=== PATIENT | male | born 1995 | race Caucasian/White ===

== ENCOUNTER 2017-03-08 11:18 | Outpatient (CLI) | payer BC ==
--- NOTE | 2017-03-08 12:07 | RAD ---
LUMBAR SPINE COMPLETE WITH BENDING: Date: 03/08/17 HISTORY: Pain. M43.17, spondylolisthesis lumbosacral region. COMPARISON: None. FINDINGS: Five non-rib bearing lumbar-type vertebra. No acute fracture. No malalignment. No significant listhes is with flexion or extension. There appears to be somewhat chronic appearing T12 vertebral body height loss. IMPRESSION: No significant listhesis with flexion or extension. POS: [facility]
== END 2017-03-08 11:19 | disposition home or self-care (01) ==
LOC: RAD 11:18
PROVIDERS: ATTEND Specialist
DX: M43.17 Spondylolisthesis, lumbosacral region (principal)
CPT/HCPCS: 36415; 72100; 82306; 82310

== ENCOUNTER 2017-05-22 15:42 | Outpatient (CLI) | payer BC ==
--- NOTE | 2017-05-22 17:04 | CT ---
EXAM: CT LUMBAR SPINE WITHOUT CONTRAST 05/22/17 HISTORY: Lumbar radiculopathy. Low back pain x8 months. Possible heavy lifting injury. COMPARISON: None. TECHNIQUE: CT lumbar spine is performed without contrast administration. Sagittal and coronal reformatted images are submitted for interpretation. FINDINGS: Lumbar spine vertebral body height is maintained. There is no fracture. There is minimal Schmorl's no vijay involving the lower thoracic and upper lumbar spine. There are bilateral pars defects at L5 witho ut associated significant spondylolisthesis. Symmetric attenuation of the psoas muscles. Visualized solid organs are unremarkable. No retroperitoneal abnormality. Limited evaluation of the contents of the central spinal canal and neural foramina. T11-T12 and T12-L1: No high grade central canal stenosis or high grade foraminal narrowing. L1-L2: No high grade central canal stenosis. Neural foramina are patent. L2-L3: No high grade central canal stenosis. Neural foramina are patent. L3-L4: No high grade central canal stenosis. Neural foramina are patent. L4-L5: Minimal generalized disc bulge without significant central canal stenosis. Minimal bilateral f oraminal narrowing. L5-S1: Central disc protrusion with minimal superior disc extrusion. Disc material abuts the ventral thecal sac without significant stenosis. Disc material does minimally encroach upon both subarticular zones without significant mass effect upon either traversing S1 nerve root. There is moderate bilate ral foraminal narrowing in part due to spondylolisthesis and in part due to disc material. IMPRESSION: Degenerative changes of the lumbar spine at L5-S1 as detailed above. POS: [facility]
== END 2017-05-22 15:43 | disposition home or self-care (01) ==
LOC: TBSIIMAG 15:42
PROVIDERS: ATTEND Surgery
DX: M47.27 Other spondylosis with radiculopathy, lumbosacral region (principal)
CPT/HCPCS: 72131

== ENCOUNTER 2017-10-30 15:17 | Outpatient (CLI) | payer BC ==
[2017-10-30 15:49] LABS: Hemoglobin 15.3 g/dL (14.0-18.0); Mean Corpuscular HGB CONC 34.8 g/dL (32.0-36.0); Mean Corpuscular Hemoglobin 31.6 pg (27.0-31.0); Mean Corpuscular Volume 90.8 fL (78.0-98.0); Mean Platelet Volume 7.6 fL (7.4-10.4); Platelet Count 186 thou/uL (130-400); RBC Distribution Width 10.8 % (11.5-14.5); Red Blood Cell (RBC) Count 4.85 mill/uL (4.70-6.10); White Blood Cell (WBC) Count 5.9 thou/uL (4.8-10.8)
[2017-10-30 15:57] LABS: PTT 28.2 SEC (22.9-36.1)
[2017-10-30 16:02] LABS: Anion Gap 11 mmol/L (10-20); BUN (Urea Nitrogen) 14 mg/dL (8.9-20.6); Calc. Creatinine Clearance 0 mL/min (70-130); Calcium 9.2 mg/dL (7.8-10.44); Carbon Dioxide 28 mmol/L (22-29); Chloride 104 mmol/L (98-107); Estimated GFR-MDRD Greater than 90; Glucose 84 mg/dL (70-105); Potassium 3.9 mmol/L (3.5-5.1); Sodium 139 mmol/L (136-145)
--- NOTE | 2017-10-31 10:42 | EKG ---
Test Reason : Blood Pressure : / mmHG Vent. Rate : 063 BPM Atrial Rate : 063 BPM P-R Int : 168 ms QRS Dur : 110 ms QT Int : 394 ms P-R-T Axes : 064 074 065 degrees QTc Int : 403 ms Normal sinus rhythm Normal ECG No previous ECGs available Confirmed by RENEA DEUTSCH, DR. Constantino ([id number]) on 10/31/2017 10:41:48 AM Referred By: ERICK Confirmed By:DR. Vira MEIER MD
== END 2017-10-30 15:18 | disposition home or self-care (01) ==
LOC: LABBT 15:17
PROVIDERS: ATTEND Surgery
DX: Z01.818 Encounter for other preprocedural examination (principal); M54.16 Radiculopathy, lumbar region; M43.16 Spondylolisthesis, lumbar region
CPT/HCPCS: 80048; 85027; 85610; 85730; 93005; 93010

== ENCOUNTER 2017-10-31 06:19 | Inpatient (IN) | payer BC ==
[2017-10-30 10:04] VITALS: BMI 27.3
[2017-10-31] MEDS ORDERED: Sodium Chloride 0.9% 10 ML ONE (06:24)
[2017-10-31] MEDS ORDERED: Bacitracin Zinc Ointment 30 gm TUBE ONE (06:24)
[2017-10-31] MEDS ORDERED: Thrombin 5000 UNITS/5 ML VIAL ONE ×2 (06:24→11:04)
[2017-10-31] MEDS ORDERED: Midazolam HCl 2 mg/2 ml Vial ONE (07:13)
[2017-10-31] MEDS ORDERED: CEFAZOLIN/Water 2 GM/20 ML SYRINGE ONE (07:21)
[2017-10-31] MEDS ORDERED: Fentanyl 100 MCG/2 ML VIAL ONE ×5 (07:28→14:22)
[2017-10-31] MEDS ORDERED: Fleet Enema 133 ML BOT PR PRN (12:11)
[2017-10-31] MEDS ORDERED: Acetaminophen 325 MG TAB PO PRN (12:11)
[2017-10-31] MEDS ORDERED: Mag-Al 1200 mg/1200 mg/30 ML UDCUP PO PRN (12:11)
[2017-10-31] MEDS ORDERED: Bisacodyl 10 MG SUPP PR PRN (12:11)
[2017-10-31] MEDS ORDERED: Acetaminophen/Codeine 30-300mg Tablet PO PRN (12:11)
[2017-10-31] MEDS ORDERED: Milk Of Magnesia 30 ML UDCUP PO PRN (12:11)
[2017-10-31] MEDS ORDERED: Ondansetron HCl/PF 4 MG/2 ML Vial IVP PRN ×2 (12:11→12:29)
[2017-10-31] MEDS ORDERED: HYDROmorphone 2 MG/ML VIAL SLOW IVP PRN (12:29)
[2017-10-31] MEDS ORDERED: Morphine Sulfate 2 MG/ML SYRINGE SLOW IVP PRN (12:29)
[2017-10-31] MEDS ORDERED: Promethazine HCl 25 MG/ML VIAL SLOW IVP PRN (12:29)
[2017-10-31] MEDS ORDERED: Meperidine HCl/PF 25 MG/ML VIAL SLOW IVP PRN (12:29)
[2017-10-31] MEDS ORDERED: Promethazine HCl 25 MG/ML VIAL IM PRN (12:29)
[2017-10-31] MEDS ORDERED: HYDROmorphone 0.5 MG/0.5 ML SYRINGE ONE ×4 (12:35→13:25)
[2017-10-31] MEDS ORDERED: ePHEDrine/0.9% NaCl/PF SYRINGE 50 mg/10 ml ONE (13:43)
[2017-10-31] MEDS ORDERED: PHENYLEPHRINE-NS 100 MCG/ML 10 ML SYRINGE ONE (13:43)
[2017-10-31] MEDS ORDERED: Lidocaine 1% PF 5 ML VIAL ONE (13:43)
[2017-10-31] MEDS ORDERED: Vecuronium 10 MG VIAL ONE (13:43)
[2017-10-31] MEDS ORDERED: Glycopyrrolate 0.2 MG/ML 5 ML SYRINGE ONE (13:43)
[2017-10-31] MEDS ORDERED: Dexamethasone 20 MG/5 ML VIAL ONE (13:43)
[2017-10-31] MEDS ORDERED: Ondansetron HCl/PF 4 MG/2 ML Vial ONE (13:43)
[2017-10-31] MEDS ORDERED: PROPOFOL 200 MG/20 ML VIAL ONE (13:43)
[2017-10-31] MEDS ORDERED: CEFAZOLIN/Water 2 GM/20 ML SYRINGE SLOW IVP SCH (14:00)
[2017-10-31] MEDS: tiZANidine HCl 4 MG TAB PO PRN ×2 (16:52→22:27)
[2017-10-31] MEDS: CEFAZOLIN/Water 2 GM/20 ML SYRINGE SLOW IVP SCH ×2 (17:00→23:23)
[2017-10-31] MEDS: HYDROcodone/Acetaminophen 7.5/325 mg Tablet PO PRN ×2 (17:00→21:00)
[2017-10-31] MEDS: Promethazine HCl 25 MG/ML VIAL IM PRN (18:17)
[2017-10-31] MEDS: Sodium Chloride 0.9% 1,000 ML IV SCH (20:29)
[2017-10-31] MEDS: traMADol HCl 50 MG TAB PO PRN (22:27)
[2017-11-01] MEDS: HYDROcodone/Acetaminophen 7.5/325 mg Tablet PO PRN ×2 (02:13→07:57)
[2017-11-01] MEDS: Sodium Chloride 0.9% 1,000 ML IV SCH ×3 (02:13→22:11)
[2017-11-01] MEDS: traMADol HCl 50 MG TAB PO PRN (05:57)
[2017-11-01] MEDS: tiZANidine HCl 4 MG TAB PO PRN ×3 (05:57→19:55)
[2017-11-01] MEDS: CEFAZOLIN/Water 2 GM/20 ML SYRINGE SLOW IVP SCH ×3 (09:00→23:55)
--- NOTE | 2017-11-01 11:04 | PRG ---
DATE OF SERVICE: 11/01/2017 SUBJECTIVE: Mr. Alcazar is postoperative day #1 from L5-S1 transforaminal interbody fusion. He is doi ng very well this morning with improvement in his leg pain. He has mobilized some in the room. He i s voiding on his own, but has had some nausea. He is now starting to tolerate oral intake. He had o ne bout of emesis yesterday. We will mobilize him more today. Anticipate at least another day in [facility].
[2017-11-01] MEDS ORDERED: HYDROcodone/Acetaminophen 7.5/325 mg Tablet PO PRN ×2 (11:11→11:12)
--- NOTE | 2017-11-01 12:25 | OP ---
DATE OF PROCEDURE: 10/31/2017 OR: 11 WOUND TYPE: Type 1 wound. SURGEON: Edy Romo M.D. FIRE EXTINGUISHER INSPECTOR: Abdirizak Adan PA-C PREPROCEDURE DIAGNOSIS: L5-S1 spondylolisthesis with spondylolysis with low back and leg pain. POSTPROCEDURE DIAGNOSIS: L5-S1 spondylolisthesis with spondylolysis with low back and leg pain. PROCEDURES: 1. L5-S1 laminectomy, facetectomy and foraminotomies. 2. Left L5-S1 interbody fusion with diskectomy and preparation of the endplates and placement of int erbody spacer with local bone autograft and BMP. 3. Posterolateral fusion L5-S1 with local bone autograft, allograft and BMP. 4. Pedicle screw arabella fixation L5-S1 for stabilization of L5-S1 spondylolisthesis. PROCEDURE IN DETAIL: After informed consent was obtained from the patient, the patient was brought t o OR 11. Proper patient pause and identification was carried out. He was placed under excellent gen eral endotracheal anesthesia and positioned prone on the OR table. All appropriate points were padde d. We identified the L5-S1 segments. A linear julian was made over this region. This area was steril kathie cleansed, prepared and draped. Proper patient pause and identification was carried out. The wou nd was then opened with a combination of sharp, monopolar and blunt dissection. L5-S1 dorsal spines, lamina and facets along with transverse processes and sacral ala were exposed. Localization film co nfirmed our area of interest. We then performed L5-S1 laminectomy with decompression of the L5 and S 1 roots along with the common dural tube bilaterally with facetectomy. We then turned our attention to left L5-S1 diskectomy and preparation of the endplates for interbody fusion. An interbody spacer of appropriate dimension was placed, packed with BMP and graft. We then turned our attention to pedi hailey screw arabella fixation. This was performed and we then finally turned our attention to copious irrig ation maximizing hemostasis throughout. Rods were then placed. Final tightening then occurred. We were satisfied with our construct. A small amount of DuraSeal was placed over the dura, not because we had a CSF leak, but simply to protect the dura. The wound was then closed in anatomic layers foll owing sprinkle of vancomycin powder. The patient then emerged from anesthesia.
[2017-11-01] MEDS: Gabapentin 100 MG CAP PO SCH ×2 (13:07→21:02)
[2017-11-01] MEDS: Promethazine HCl 25 MG/ML VIAL IM PRN (13:15)
[2017-11-01] MEDS ORDERED: Zolpidem Tartrate 5 MG TAB PO PRN (13:56)
[2017-11-01] MEDS ORDERED: fentaNYL Citrate/PF 2,000 MCG in Sodium Chloride 0.9% 60 ML IV PRN (13:56)
[2017-11-01] MEDS ORDERED: diphenhydrAMINE 50 MG/ML VIAL IM/IV PRN (13:56)
[2017-11-01] MEDS ORDERED: Promethazine HCl 25 MG/ML VIAL IM PRN (13:56)
[2017-11-01] MEDS ORDERED: Naloxone HCl 0.4 mg/ml Vial IV PRN (13:56)
[2017-11-01] MEDS ORDERED: Ondansetron HCl/PF 4 MG/2 ML Vial IVP PRN (13:56)
[2017-11-01] MEDS ORDERED: diphenhydrAMINE 25 MG CAP PO PRN (13:56)
[2017-11-01] MEDS ORDERED: Ketorolac Tromethamine 30 MG/ML VIAL IVP SCH (14:00)
[2017-11-01] MEDS ORDERED: Promethazine HCl 25 MG/ML VIAL IM/IV PRN (14:01)
[2017-11-01] MEDS ORDERED: methylPREDNISolone 4 mg Tablet PO SCH (16:00)
[2017-11-01] MEDS ORDERED: CONFIRM ALL DAY 1 DOSES ARE TIMED FOR DAY 1 FS SCH (16:15)
[2017-11-01] MEDS: methylPREDNISolone 4 mg Tablet PO SCH ×3 (17:50→21:02)
[2017-11-01] MEDS: Famotidine 20 MG TAB PO SCH (21:02)
[2017-11-02] MEDS: tiZANidine HCl 4 MG TAB PO PRN ×4 (01:58→23:37)
[2017-11-02] MEDS: Famotidine 20 MG TAB PO SCH ×2 (08:34→20:32)
[2017-11-02] MEDS: Gabapentin 100 MG CAP PO SCH ×3 (08:34→20:32)
[2017-11-02] MEDS: CEFAZOLIN/Water 2 GM/20 ML SYRINGE SLOW IVP SCH ×3 (08:34→23:44)
[2017-11-02] MEDS: methylPREDNISolone 4 mg Tablet PO SCH ×3 (09:08→18:40)
--- NOTE | 2017-11-02 09:53 | PRG ---
DATE OF SERVICE: 11/02/2017 Mr. Rabago is now 2 days out from a L5-S1 laminectomy and TLIF. Yesterday, he had significant muscle spasm and is unable to move and needed the narcotic pain medication on a RUG INSPECTOR pump. The pain is under better control today and he feels significantly improved. He wants to try to work with our physical therapist here in the hospital, getting in and out of bed. We will leave him on a RUG INSPECTOR until after t hat. If he feels a significant improvement is made, we will transition him to oral medications. Onc e he is independent and safe for all his activities of daily living, we can discharge him with oral p ain medicine. The timeline for that could be as early as today or as late as Saturday or Saturday.
[2017-11-02] MEDS ORDERED: HYDROcodone/Acetaminophen 7.5/325 mg Tablet PO PRN ×2 (16:49)
[2017-11-02] MEDS ORDERED: traMADol HCl 50 MG TAB PO PRN (16:50)
[2017-11-02] MEDS ORDERED: HYDROcodone/Acetaminophen 5/325 mg Tablet PO PRN (17:08)
[2017-11-02] MEDS: HYDROcodone/Acetaminophen 5/325 mg Tablet PO PRN ×2 (17:17→22:30)
[2017-11-02] MEDS ORDERED: Polyethylene Glycol 3350 17 GM Packet PO SCH (18:15)
[2017-11-02] MEDS: Sodium Chloride 0.9% 1,000 ML IV SCH (18:27)
[2017-11-02] MEDS: traMADol HCl 50 MG TAB PO PRN (20:33)
[2017-11-02] MEDS ORDERED: methylPREDNISolone 4 mg Tablet PO SCH ×2 (21:00)
[2017-11-03] MEDS: HYDROcodone/Acetaminophen 5/325 mg Tablet PO PRN ×3 (02:43→11:58)
[2017-11-03] MEDS: Sodium Chloride 0.9% 1,000 ML IV SCH (04:54)
[2017-11-03] MEDS: traMADol HCl 50 MG TAB PO PRN (04:55)
[2017-11-03] MEDS: tiZANidine HCl 4 MG TAB PO PRN (05:52)
[2017-11-03] MEDS: Non-Formulary Item 1 EACH (Lifitegrast [Xiidra] 1 EACH) EA EYE SCH (06:49)
[2017-11-03] MEDS: Gabapentin 100 MG CAP PO SCH (07:52)
[2017-11-03] MEDS: Famotidine 20 MG TAB PO SCH (07:53)
[2017-11-03] MEDS: CEFAZOLIN/Water 2 GM/20 ML SYRINGE SLOW IVP SCH (07:53)
[2017-11-03 07:55] VITALS: BP 115/69; TEMP 98.3
[2017-11-03] MEDS ORDERED: Polyethylene Glycol 3350 17 GM Packet PO SCH (09:00)
[2017-11-03] MEDS: methylPREDNISolone 4 mg Tablet PO SCH ×2 (09:25→11:59)
--- NOTE | 2017-11-03 09:42 | PRG ---
DATE OF SERVICE: 11/03/2017 Mr. Rabago is up out of bed this morning. He says yesterday he was much better than the day before. His pain seems to be well controlled. He is on oral medications. He is walking by himself to the re stroom. He is passing gas, but no bowel movement yet. He is able to empty his bladder. He is keepi ng his food down. He is safe for his activities of daily living and I think he is ready for discharg e. We will make sure the prescriptions for medications are available and we will arrange his dischar ge today. Followup has already been made with Dr. Romo. He returns to class in the [employer] on 11/25, and he is hoping for a quick recovery.
[2017-11-04] MEDS ORDERED: methylPREDNISolone 4 mg Tablet PO SCH (08:00)
[2017-11-05] MEDS ORDERED: methylPREDNISolone 4 mg Tablet PO SCH (08:00)
[2017-11-06] MEDS ORDERED: methylPREDNISolone 4 mg Tablet PO SCH (08:00)
== END 2017-11-03 12:20 | disposition home or self-care (01) | DRG 460 ==
LOC: SDC 06:19 → EDSTATUS 10:03 → SJJU 14:46
PROVIDERS: ADMIT Surgery; ATTEND Surgery
PROC: 0SG30AJ Fusion of Lumbosacral Joint with Interbody Fusion Device, Posterior Approach, Anterior Column, Open Approach (ICD-10-PCS; principal; 2017-10-31)
PROC: 0SB40ZZ Excision of Lumbosacral Disc, Open Approach (ICD-10-PCS; 2017-10-31)
PROC: 3E0U0GB Introduction of Recombinant Bone Morphogenetic Protein into Joints, Open Approach (ICD-10-PCS; 2017-10-31)
DX: M43.17 Spondylolisthesis, lumbosacral region (principal); M54.5 Low back pain; M79.606 Pain in leg, unspecified
CPT/HCPCS: 76001; A4216; C1713; G8978-GP-CL; G8979-GP-CJ; J0131; J1170; J1885; J2250; J2270; J2405; J2550; J3010; J3370; J3490; J7050

== ENCOUNTER 2017-12-18 09:52 | Outpatient (CLI) | payer BC ==
--- NOTE | 2017-12-18 11:39 | RAD ---
LUMBAR SPINE TWO VIEWS: HISTORY: Spondylolisthesis. COMPARISON: 03/08/2017 FINDINGS: Interval fusion changes with bilateral transpedicular screws at L5 and S1. There is persistent spond ylolysis. There is 5 mm of anterolisthesis of L5 upon S1 (previously 6 mm). Disk prosthesis at L5-S 1. Mild loss of disk space height and osteophyte formation in the distal thoracic spine. Small amount of bone graft material is noted in the posterior elements. IMPRESSION: Fusion changes at the lumbosacral junction. POS: [facility]
== END 2017-12-18 09:53 | disposition home or self-care (01) ==
LOC: TBSIIMAG 09:52
PROVIDERS: ATTEND Surgery
DX: M43.16 Spondylolisthesis, lumbar region (principal); Z98.1 Arthrodesis status
CPT/HCPCS: 72100

== ENCOUNTER 2018-08-22 09:24 | Outpatient (CLI) | payer BC ==
--- NOTE | 2018-08-22 10:09 | RAD ---
2 views of the lumbar spine: 08/22/2018 COMPARISON: 12/18/2017 HISTORY: Prior lumbar spine surgery, right-sided sciatic pain FINDINGS: Stable bilateral L5 and S1 pedicle screws with vertically oriented interlocking rods. Stabl e intervertebral disc device at the L5-S1 level. Mild anterolisthesis of L5 on S1, stable. No acute osseous abnormality. Stable mild disc space narrowing and anterior osteophyte formation at L1-2. IMPRESSION: Stable postoperative changes. No acute osseous abnormality.
== END 2018-08-22 09:25 | disposition home or self-care (01) ==
LOC: TBSIIMAG 09:24
PROVIDERS: ATTEND Surgery
DX: M54.16 Radiculopathy, lumbar region (principal); Z98.890 Other specified postprocedural states
CPT/HCPCS: 72100

== ENCOUNTER 2018-10-15 08:09 | Outpatient (CLI) | payer BC ==
--- NOTE | 2018-10-15 09:09 | CT ---
CT LUMBAR SPINE, NONCONTRAST: HISTORY: Back Pain COMPARISON: 05/22/2017 FINDINGS: Interval decompression, with postoperative fusion at L5-S1 with bilateral pedicle screws and vertical interconnecting rods at site of prior disc protrusion. Grade I spondylolisthesis of L5-S1 measures 7 mm, increased from 4 mm on prior exam. Stable endplate irregularities at the lower thoracic, upper lumbar spine, chronic. L1-2:Stable in appearance L2-3:Stable in appearance L3-4:Stable in appearance L4-5:Small left paracentral disc protrusion mildly effaces ventral thecal sac. L5-S1:Interval fusion as discussed above. There is is an intervening disc space prosthesis. Postopera tive endplate irregularity with associated sclerosis and developing osseous incorporation which spans the disc space is seen. IMPRESSION: Slight progression of grade I spondylolisthesis at L5-S1. Interval fusion of L5-S1. Small left paracentral L4-5 level disc protrusion with mild effacement of ventral thecal sac.
== END 2018-10-15 08:10 | disposition home or self-care (01) ==
LOC: BICCT 08:09
PROVIDERS: ATTEND Physician Assistant Surgical
DX: M48.061 Spinal stenosis, lumbar region without neurogenic claudication (principal); M43.16 Spondylolisthesis, lumbar region; M43.17 Spondylolisthesis, lumbosacral region; M51.16 Intervertebral disc disorders with radiculopathy, lumbar region; Z98.1 Arthrodesis status
CPT/HCPCS: 72131

== ENCOUNTER 2018-10-15 09:20 | Outpatient (CLI) | payer OTHER ==
[2018-10-15] MEDS ORDERED: Gadobenate Dimeglumine 529 MG/1 ML (20ML VIAL) ONE (10:54)
--- NOTE | 2018-10-15 13:11 | MRI ---
MRI LUMBAR SPINE WITH AND WITHOUT CONTRAST: DATE: 10/15/18 HISTORY: 23-year-old male with spondylolisthesis lumbar region without neurogenic claudication, M54.5, low ba ck pain, lumbar radiculopathy. COMPARISON: No prior MRI available. TECHNIQUE: Multiple sequences obtained in axial and sagittal planes, pre and post IV injection of gadolinium-bas ed contrast agent: 18 mL Multihance. FINDINGS: For the purposes of this report, it will be assumed that there are 5 lumbar-type vertebrae. The vert ebral body heights are maintained. Conus medullaris terminates at mid L1. Cauda equina is arranged in a symmetrical, normal distribution throughout the thecal sac. The central spinal canal and thecal sac are generous in caliber throughou t all levels. Perivertebral spaces demonstrate no abnormality other than postsurgical changes posteri or to the thecal sac and spinal canal. The findings by individual levels are as follows: T12-L1: Moderate disc space narrowing. Disc desiccation. Schmorl's nodes. No central or neural forami nal stenosis. L1-2: Moderate disc space narrowing. Schmorl's nodes. Disc desiccation. No central or neural foramina l stenosis. L2-3: Normal. L3-4: Normal. L4-5: Normal. L5-S1: Bilateral pedicle screws at L5 and S1. Grade I anterolisthesis of L5 on S1. Subcortical cystic changes of bone involving right far anterior L5 vertebral body and left posterior edge of L5 vertebr al body. Decompressive midline laminectomy defect. Enhancing postsurgical scar tissues circumferentia lly surrounding the thecal sac and surrounding the left S1 nerve root in the left lateral recess and partially surrounding the right S1 nerve root at the right lateral recess. Mild to moderate bilateral neural foraminal stenosis (the stenosis is in the craniocaudal dimension. AP dimension is not stenot ic). Metallic and nonmetallic graft material in the disc space. Enhancing postsurgical scar at the po sterior edge of the disc space encroaching upon the anterior epidural space. IMPRESSION: 1. Grade I spondylolisthesis at L5-S1 due to bilateral L5 spondylolysis. 2. This is treated with bilateral pedicle screws at L5-S1. 3. Status post decompressive laminectomy at L5-S1. 4. Mild to moderate narrowing of the bilateral neural foramina in the craniocaudal dimension at L5-S1. 5. Postsurgical scar tissue in the epidural space at L5-S1 partially surrounding the bilateral S 1 nerve roots, left greater than right. 6. No central spinal canal stenosis at any level. The spinal canal and thecal sac are generous i n caliber at all levels. 7. No neural foraminal stenosis at any other level. 8. Moderate degenerative disc changes at T12-l1 and L1-2. JN R POS: [facility]
== END 2018-10-15 09:21 | disposition home or self-care (01) ==
LOC: BICMRI 09:20
PROVIDERS: ATTEND Physician Assistant Surgical
DX: M43.16 Spondylolisthesis, lumbar region (principal); M48.061 Spinal stenosis, lumbar region without neurogenic claudication; M47.26 Other spondylosis with radiculopathy, lumbar region; M43.17 Spondylolisthesis, lumbosacral region; M51.34 Other intervertebral disc degeneration, thoracic region; M51.36 Other intervertebral disc degeneration, lumbar region; L90.5 Scar conditions and fibrosis of skin; M48.07 Spinal stenosis, lumbosacral region; Z98.890 Other specified postprocedural states
CPT/HCPCS: 72158; A9577

== ENCOUNTER 2019-03-30 07:06 | Day surgery (SDC) | payer BC ==
[2019-03-27 14:50] VITALS: BMI 25.0
[2019-03-30 08:10] VITALS: BP 129/76; TEMP 97.7
--- NOTE | 2019-03-30 08:43 | RAD ---
Exam: LUMBAR MYELOGRAM: HISTORY: Lumbosacral spondylolisthesis. Previous lumbar fusion Exposure: 0.5 minutes, 31.9 microgray/M2. FINDINGS: 2 views lumbar spine real estate account executive radiograph demonstrates 5 lumbar type vertebra. Vertebral body height is m aintained. No fracture. No significant loss of disc space height. Bilateral transpedicular screws at L5 and S1. No perihardware lucency. Associated disc prosthesis. 8. 3 mm of anterolisthesis of L5 upon S1. Successful lumbar puncture for intrathecal contrast administration. A total of 10 mL of Isovue-M 200 contrast was administered intrathecally at the L2-L3 level. TECHNIQUE: Consent obtained to perform a lumbar puncture for lumbar myelogram. The L2-L3 level was deemed approp riate. Skin was prepped and draped in a sterile fashion. 1% lidocaine, buffered with sodium bicarbonate was used for local anesthesia. Under fluoroscopic guidance, 22-gauge spinal needle was ad vanced into the CSF space at the L2-L3 level. Inner stylet was removed. Prompt flow of clear CSF into the hub of the needle. Via a short tubing catheter, total of 10 mL of Isovue-M 200 contrast was administered intrathecally. The patient tolerated the procedure well. No immediate or postprocedure complications. IMPRESSION: Successful lumbar puncture for lumbar myelogram. Transcribed Date/Time: 03/30/2019 8:50 AM
--- NOTE | 2019-03-30 09:00 | CT ---
Exam: POST MYELOGRAM LUMBAR SPINE CT: COMPARISON: 10/15/2018. CORRELATION: MRI lumbar spine 10/15/2018. FINDINGS: The visualized retroperitoneal structures, paraspinal structures have appropriate attenuation. Visualized solid organs are unremarkable. 5 lumbar type vertebra. No lumbar spine fracture. Bilateral transpedicular screws at L5 and S1. Associated disc prosthesis. 0.6 cm of anterolisthesis o f L5 upon S1 with associated bilateral spondylolysis. Conus medullaris terminates at the T12-L1 disc space. T11-T12 and T12-L1: No significant central canal stenosis or significant neural foraminal narrowing. L1-L2: No significant central canal stenosis or significant neural foraminal narrowing. L2-L3: No significant central canal stenosis or significant neural foraminal narrowing. L3-L4: No significant central canal stenosis or significant neural foraminal narrowing. L4-L5: Left hemilaminotomy defect. No significant central canal stenosis or significant neural forami nal narrowing. L5-S1: Posterior laminectomy defect. No significant central canal stenosis or significant neural fora jay narrowing. IMPRESSION: 1. Redemonstration of fusion changes at L5-S1. Grade 1 anterolisthesis of L5 upon S1 with associated spondylolysis. 2. Throughout the lumbar spine, no significant central canal stenosis or significant neural foraminal narrowing. 3. Right hemilaminotomy defect at L4-L5. Transcribed Date/Time: 03/30/2019 9:14 AM
[2019-03-30] MEDS ORDERED: FLU VACC QS2019-20(6MOS UP)/PF 60 MCG/0.5 ML SYRINGE IM ONE (15:00)
== END 2019-03-30 09:45 | disposition home or self-care (01) ==
LOC: RAD 07:06 → EDSTATUS 08:00 → RAD 09:45
PROVIDERS: ATTEND Specialist
PROC: B01B1ZZ Fluoroscopy of Spinal Cord using Low Osmolar Contrast (ICD-10-PCS; principal; 2019-03-30)
DX: M43.17 Spondylolisthesis, lumbosacral region (principal); Z79.899 Other long term (current) drug therapy; Z88.2 Allergy status to sulfonamides; Z98.1 Arthrodesis status
CPT/HCPCS: 62304; 72132; 90471; 90686; G0008